=== PATIENT | male | born 1940 | race Caucasian/White ===

== ENCOUNTER 2022-06-16 01:54 | Emergency (ER) | payer MEDICARE, OTHER ==
[2022-06-16 02:31] VITALS: BP 136/53; PULSE 63
[2022-06-16] MEDS ORDERED: Alum Hydrox/Mag Hydrox/Simeth 15 ML, Lidocaine 2% 15 ML PO ONE ×2 (02:38)
[2022-06-16 03:18] LABS: ESTIMATED GFR 76 mL/min (>60); TROPONIN I HIGH SENSITIVITY 12.3 pg/mL (<=60.3)
== END 2022-06-16 03:36 | disposition home or self-care (01) ==
LOC: JP.ED 01:54
DX: K21.9 Gastro-esophageal reflux disease without esophagitis (principal); I10 Essential (primary) hypertension; Z79.82 Long term (current) use of aspirin; Z79.899 Other long term (current) drug therapy
CPT/HCPCS: 36415; 80053; 83605; 84484; 85025; 99284; A9270